=== PATIENT | male | born 1975 | race Two or more races ===

== ENCOUNTER 2016-09-18 17:48 | Emergency (ER) | payer BC ==
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
== END 2016-09-18 19:25 | disposition home or self-care (01) ==
LOC: ED 17:48
DX: R07.9 Chest pain, unspecified (principal); F17.210 Nicotine dependence, cigarettes, uncomplicated

== ENCOUNTER 2016-09-24 13:20 | Emergency (ER) | payer BC | END 2016-09-24 14:49 | disposition home or self-care (01) | LOC: ED 13:20 | DX: B02.9 Zoster without complications (principal) ==